=== PATIENT | female | born 1995 | race Caucasian/White ===

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

== ENCOUNTER 2017-03-31 11:57 | Emergency (ER) | payer BC | END 2017-03-31 16:07 | disposition left against medical advice (07) | LOC: UCCORT 11:57 | DX: R11.2 Nausea with vomiting, unspecified (principal); Z53.21 Procedure and treatment not carried out due to patient leaving prior to being seen by health care provider ==

== ENCOUNTER 2017-10-12 12:55 | Emergency (ER) | payer BC ==
[2017-10-12 13:13] VITALS: BP 127/59
--- NOTE | 2017-10-12 13:29 | UC ---
Hand/Wrist HPI - HPI Summary HPI Summary: Fell yesterday. C/O persistent left 4th finger swelling and pain up into the hand. - History Of Current Complaint Chief Complaint: UCUpperExtremity Stated Complaint: LEFT RING FINGER INJURY Time Seen by Provider: 10/12/17 13:15 Hx Obtained From: Patient Hx Last Menstrual Period: 10/05/17 ?: No Onset/Duration: Sudden Onset - fell last night, Still Present Severity Initially: Moderate Severity Currently: Moderate Pain Intensity: 5 Character Of Pain: Dull, Aching Aggravating Factor(s): Movement, Lifting, Flexion Alleviating Factor(s): Rest Associated Signs And Symptoms: Positive: Swelling, Bruising. Negative: Numbness /Tingling Related History: Dominant Hand Right - Allergies/Home Medications Allergies/Adverse Reactions: Allergies Allergy/AdvReac Type Severity Reaction Status Date / Time No Known Allergies Allergy Verified 10/12/17 13:09 PMH/Surg Hx/FS Hx/Imm Hx Previously Healthy: Yes Other History Of: Negative For: HIV, Hepatitis B, Hepatitis C - Surgical History Surgical History: Yes Surgery Procedure, Year, and Place: Right Proximal Humerus Fracture, 2012, [facility] - Family History Known Family History: Positive: Diabetes, Other - positive fmh uri Negative: Cardiac Disease, Hypertension - Social History Occupation: Student Lives: Dormitory/Roommates Alcohol Use: None Substance Use Type: None Smoking Status (MU): Never Smoked Tobacco - Immunization History Most Recent Influenza Vaccination: not this season Review of Systems Skin: Bruising Musculoskeletal: Arthralgia - left 4th MCP and proximal finger. Is Patient Immunocompromised?: No All Other Systems Reviewed And Are Negative: Yes Physical Exam Triage Information Reviewed: Yes Appearance: Well-Appearing, No Pain Distress, Well-Nourished Vital Signs: Initial Vital Signs Temp 98.7 F 10/12/17 13:07 Pulse 82 10/12/17 13:07 Resp 16 10/12/17 13:07 BP 127/59 10/12/17 13:07 Pulse Ox 100 10/12/17 13:07 Vital Signs Reviewed: Yes Eyes: Positive: Conjunctiva Clear Neck exam: Normal Respiratory Exam: Normal Cardiovascular Exam: Normal Musculoskeletal: Positive: ROM Limited @ - left 4th MCP and PIP, Other: - gamboa swelling and bruising over the 4th MCP. Neurological Exam: Normal Psychological Exam: Normal Skin Exam: Normal Procedures - Splinting Left 4th Digit Pre-Made Type: metal - aluminum finger splint Splint: volar - miquel wrapped with 5th finger with kacie wrap. Applied by Pre-Proc Neuro Vasc Exam: normal Post-Proc Neuro Vasc Exam: normal Diagnostics - Radiology No standard instances Xray Interpretation: No Acute Changes Radiology Interpretation Completed By: ED Physician Hand/Wrist Course/Dx - Differential Dx/Diagnosis Differential Diagnosis/HQI/PQRI: Abrasion, Fracture, Sprain, Strain Provider Diagnoses: Sprain left 4th MCP Discharge - Sign-Out/Discharge Documenting (check all that apply): Patient Departure All imaging exams completed and their final reports reviewed: No - Discharge Plan Condition: Stable Disposition: HOME Patient Education Materials: Finger Sprain (ED), Splint Care (ED) Referrals: No Primary Care Phys,NOPCP [Primary Care Provider] - Additional Instructions: Use the splint to protect it and help with pain. You can take it off to shower. Ice can be helpful for the first 48 hours. Take the splint off to apply ice. - Billing Disposition and Condition Condition: STABLE Disposition: Home
--- NOTE | 2017-10-12 14:03 | RAD ---
Indication: Trauma to the LEFT fourth finger. Swelling and bruising. Comparison: No relevant prior exams available on the [facility] PACS for comparison. Technique: 3 views LEFT fourth finger. REPORT AND IMPRESSION: #. Negative for fracture or malalignment. #. Fusiform soft tissue swelling centered at the proximal interphalangeal joint.
--- NOTE | 2017-10-12 19:03 | UC ---
- Progress Note Progress Note: Final report seen by Dr. Stearns Discharge - Sign-Out/Discharge Documenting (check all that apply): Post-Discharge Follow Up All imaging exams completed and their final reports reviewed: Yes - Discharge Plan Condition: Stable Disposition: HOME Patient Education Materials: Splint Care (ED), Finger Sprain (ED) Referrals: No Primary Care Phys,NOPCP [Primary Care Provider] - Additional Instructions: Use the splint to protect it and help with pain. You can take it off to shower. Ice can be helpful for the first 48 hours. Take the splint off to apply ice. - Billing Disposition and Condition Condition: STABLE Disposition: Home
== END 2017-10-12 13:51 | disposition home or self-care (01) ==
LOC: UCCORT 12:55
DX: S63.8X2A Sprain of other part of left wrist and hand, initial encounter (principal); W19.XXXA Unspecified fall, initial encounter; Y92.9 Unspecified place or not applicable
CPT/HCPCS: 73140; 99211; G0463

== ENCOUNTER 2018-03-29 19:05 | Emergency (ER) | payer BC ==
[2018-03-29 19:19] VITALS: BP 121/59
[2018-03-29] MEDS ORDERED: Cephalexin CAP* 500 MG PO ONE (19:42)
--- NOTE | 2018-03-29 19:44 | UC ---
UC General HPI - HPI Summary HPI Summary: PT STATES L EAR PIERCING IN CARTILAGE SINCE THIS SUMMER. IT BECAME INFECTED OVER THAT PAST 2 DAYS AND IS DRAINING PUSS. NO FEVER OR HX MRSA BUT THERE IS A SWOLLEN GLAND JUST BELOW THE EAR. - History of Current Complaint Chief Complaint: UCEar Stated Complaint: LEFT EAR COMPLAINT Time Seen by Provider: 03/29/18 19:20 Hx Obtained From: Patient Hx Last Menstrual Period: 02/21/18 Onset/Duration: Gradual Onset Timing: Constant Pain Intensity: 7 Associated Signs & Symptoms: Negative: Fever - Allergy/Home Medications Allergies/Adverse Reactions: Allergies Allergy/AdvReac Type Severity Reaction Status Date / Time No Known Allergies Allergy Verified 03/29/18 19:15 Home Medications: Home Medications Norgestimate-Ethinyl Estradiol [Tri-Sprintec Tablet] 1 tab DAILY 03/29/18 [ History Confirmed 03/29/18] PMH/Surg Hx/FS Hx/Imm Hx Previously Healthy: Yes Other History Of: Negative For: HIV, Hepatitis B, Hepatitis C - Surgical History Surgical History: Yes Surgery Procedure, Year, and Place: Right Proximal Humerus Fracture, 2012, [facility] - Family History Known Family History: Positive: Diabetes, Other - positive fmh uri Negative: Cardiac Disease, Hypertension - Social History Occupation: Student Alcohol Use: None Substance Use Type: None Smoking Status (MU): Never Smoked Tobacco - Immunization History Most Recent Influenza Vaccination: not this season Hx Tetanus, Diphtheria Vaccination: Yes Vaccination Up to Date: Yes Review of Systems All Other Systems Reviewed And Are Negative: Yes Constitutional: Positive: Negative Skin: Positive: Negative Eyes: Positive: Negative ENT: Positive: Negative Respiratory: Positive: Negative Cardiovascular: Positive: Negative Gastrointestinal: Positive: Negative Genitourinary: Positive: Negative Motor: Positive: Negative Neurovascular: Positive: Negative Musculoskeletal: Positive: Negative Neurological: Positive: Negative Psychological: Positive: Negative Physical Exam Triage Information Reviewed: Yes Appearance: Well-Appearing Vital Signs: Initial Vital Signs Temp 98.2 F 03/29/18 19:16 Pulse 87 03/29/18 19:16 Resp 16 03/29/18 19:16 BP 121/59 03/29/18 19:16 Pulse Ox 100 03/29/18 19:16 Vital Signs Reviewed: Yes Eyes: Positive: Conjunctiva Clear ENT: Positive: Pharynx normal, TMs normal, Other - L auricle/ear with piercings. The L middle ring has slight swelling to front of ear with scant puss draining and the backside has a 4mm pustule that is fluctuant. The adjacent ear is red and warm. The rest of the ear is unremarkable.The is adenopathy just inferior to that ear at angle of jaw.. Negative: Nasal congestion, Nasal drainage Neck: Positive: Supple, Nontender, No Lymphadenopathy Respiratory: Positive: Lungs clear Cardiovascular: Positive: RRR Abdomen Description: Positive: Nontender Bowel Sounds: Positive: Present Musculoskeletal: Positive: ROM Intact Neurological: Positive: Alert Psychological: Positive: Age Appropriate Behavior Skin Exam: Normal Course/Dx - Course Course Of Treatment: Pt gave permission to remove the piercing that is infected. Piercing unscrewed with ease and loop backed out. The pustule ruptured when I backed the loop out, draining a small amount of green puss. culture obtained. area cleaned with betadine then clensed. Bacitracin applied. Less swelling and erythema post tx. Only scant bleeding. Pt tolerated well. Piercing placed in a cup and given to pt for take home. will refer to ENT since abscess and secondary cellulitis of ear. 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 - Diagnoses Provider Diagnosis: Cellulitis of left ear, Abscess of external ear, left Discharge - Sign-Out/Discharge Documenting (check all that apply): Patient Departure All imaging exams completed and their final reports reviewed: No Studies - Discharge Plan Condition: Stable Disposition: HOME Prescriptions: Cephalexin CAP* [Keflex CAP*] 500 mg PO TID 10 Days #30 cap Patient Education Materials: Cellulitis (DC), Abscess (ED) Referrals: Matti Mills MD [Medical Doctor] - 2 Days - Billing Disposition and Condition Condition: STABLE Disposition: Home
== END 2018-03-29 20:06 | disposition home or self-care (01) ==
LOC: UCCORT 19:05
DX: H60.12 Cellulitis of left external ear (principal); H66.42 Suppurative otitis media, unspecified, left ear
CPT/HCPCS: 87070; 87205; 87640; 87641; 99212; A9270-GY; G0463

== ENCOUNTER 2018-06-12 07:11 | Emergency (ER) | payer BC ==
--- OUTSIDE RECORDS SUMMARY | 2018-06-12 07:20 | XMS REPORT | Continuity of Care Document ---
:1995 External Reference #:[id number] Author Name Jessica Sands NP Address [address] [place] [id number] Care Team Providers Name Role Phone Yes Primary Care Physician Unavailable Payers Date Identification Numbers Payment Provider Subscriber Effective: 2018 Policy Number: [employer] Medicaid Pe ([facility]) Carolee Trammell Expires: 2018 PayID: [id number] [address] [place], [place] [id number] Advance Directives Description No Information Available Problems Description No Information Family History Date Family Member(s) Observation Comments Father Alive Father No Current Problems Mother Alive Mother No Current Problems Social History Type Date Description Comments Sex Female Education Currently attending 3rd year of college Marital Status Legal Status: Never Tobacco Use Reviewed: 06/03/18 Never Smoked Cigars Tobacco Use Reviewed: 06/03/18 Never Smoked A Pipe Smoking Status Reviewed: 06/03/18 Never Smoked A Pipe Tobacco Use Reviewed: 06/03/18 Never Used Smokeless Tobacco ETOH Use Occasionally consumes alcohol Tobacco Use Reviewed: 06/03/18 Patient has never smoked Recreational Drug Use Denies Drug Use Recreational Drug Use Teaching provided regarding Naloxone/Narcan Training Available At [facility] Tattoo/Piercing Negative For Tattoo Condom Use Frequently UNKNOWN 06/03/2018 Never E-Cigarette user Allergies, Adverse Reactions, Alerts Description No Known Drug Allergies Medications Active Medications SIG Qnty Indications Ordering Provider Date Plan B One-Step take one tab 1tabs Z30.41 Jessica Sands NP 06/03/2018 1.5mg today Tablets Tri-Sprintec Unknown Medications Administered in Office Medication SIG Qnty Indications Ordering Provider Date Emergency Contraceptive Jessica Sands NP 06/03/2018 Injection Immunizations Description No Information Available Vital Signs Date Vital Result Comment 06/03/2018 9:26am BP Systolic 93 mmHg BP Diastolic 73 mmHg Height 64 inches 5'4" Weight 125.00 lb BMI (Body Mass Index) 21.5 kg/m2 Results Test Date Facility Test Result H/L Range Note Laboratory test finding 06/03/2018 [facility] HIV Rapid... non reactive Hep C Rapid Test non reactive Procedures Description No Information Available Encounters Type Date Location Provider Dx Diagnosis Office Visit 06/03/2018 [facility] Jessica Sands, ADOLPH Z11.4 Encounter for screening 9:00a for human immunodeficiency virus Z30.41 Encounter for surveillance of contraceptive pills Z11.3 Encntr screen for infections w sexl mode of transmiss Z11.59 Encounter for screening for other viral diseases Plan of Treatment 06/03/2018 - Jessica Sands NPZ11.4 Encounter for screening for human immunodeficiency virusComments:Advised patient to RTO for repeat testing in 3 months if she is concerned about anyone she has had sex with in the last 90 days.Z30.41 Encounter for surveillance of contraceptive pillsNew Medication: Plan B One-Step 1.5 mg - take one tab todayComments:Patient to continue on ocp . Reviewed use of, side effects and precautions with patient who states understanding. Patient is aware of ECP. She plans to f/u with home [employer] for annual and bcp refills. Shehas asked for a sample of Plan B for prn use. Gave one sample and reviewed use of, side effects and precautions of plan B use with patient who states understanding. Reviewed IUD options with patient. She states that she will call if she decides that she wants one.Z11.3 Encounter for screening for infections with a predominantlyNew Labs:Chlamydia/N Gonorroeae Rna Tma Urogenit, Ordered: 06/03/18Comments:Reviewed STD risks and prevention with patient. Patient states understanding.Z11.59 Encounter for screening for other viral diseases
[2018-06-12 07:25] VITALS: BP 96/72
--- NOTE | 2018-06-12 08:20 | UC ---
General HPI - HPI Summary HPI Summary: Woke with left eye glued shut, redness and itchy. Roommate just diagnosed with pink eye a few days ago and is better already. C/O sore throat this AM. No cough or congestion. No fever. No changes in vision. Meds; Reviewed. Otherwise acting ok - History of Current Complaint Chief Complaint: ABIDAEye Stated Complaint: LEFT EYE COMPLAINT Time Seen by Provider: 06/12/18 08:14 Hx Last Menstrual Period: 06/10/18 Pain Intensity: 0 - Allergy/Home Medications Allergies/Adverse Reactions: Allergies Allergy/AdvReac Type Severity Reaction Status Date / Time No Known Allergies Allergy Verified 03/29/18 19:15 PMH/Surg Hx/FS Hx/Imm Hx Previously Healthy: Yes Other History Of: Negative For: HIV, Hepatitis B, Hepatitis C - Surgical History Surgical History: Yes Surgery Procedure, Year, and Place: Right Proximal Humerus Fracture, 2012, [facility] - Family History Known Family History: Positive: Diabetes, Other - positive fmh uri Negative: Cardiac Disease, Hypertension - Social History Alcohol Use: None Substance Use Type: None Smoking Status (MU): Never Smoked Tobacco - Immunization History Most Recent Influenza Vaccination: not this season Hx Tetanus, Diphtheria Vaccination: Yes Vaccination Up to Date: Yes Review of Systems All Other Systems Reviewed And Are Negative: Yes Constitutional: Positive: Negative Eyes: Positive: Drainage, Eye Redness Physical Exam Triage Information Reviewed: Yes Appearance: Well-Appearing Vital Signs: Initial Vital Signs Temp 97.7 F 06/12/18 07:20 Pulse 75 06/12/18 07:20 Resp 16 06/12/18 07:20 BP 96/72 06/12/18 07:20 Pulse Ox 99 06/12/18 07:20 Eyes: Positive: Conjunctiva Inflamed, Other: - mainly on left, mild on right ENT: Positive: Pharyngeal erythema, TMs normal Neck exam: Normal Neck: Positive: Supple Respiratory: Positive: Lungs clear, Normal breath sounds Cardiovascular: Positive: RRR, No Murmur Skin Exam: Normal Course/Dx - Course Course Of Treatment: This is a 22 yr old with left eye redness and drainage Assessment Nontoxic appearing Plan Start antibiotic eye drop as prescribed If right eye starts to become red and itchy - start drops in that eye as well, same as directed Recommend good hand washing - Diagnoses Provider Diagnosis: Conjunctivitis Discharge - Sign-Out/Discharge Documenting (check all that apply): Patient Departure All imaging exams completed and their final reports reviewed: No Studies - Discharge Plan Condition: Good Disposition: HOME Prescriptions: Polymyx/Trimethoprim OPTH* [Polytrim OPHTH*] 3 drop LEFT EYE Q8H #1 btl Patient Education Materials: Conjunctivitis (ED) Referrals: No Primary Care Phys,NOPCP [Primary Care Provider] - Additional Instructions: Start antibiotic eye drop as prescribed If right eye starts to become red and itchy - start drops in that eye as well, same as directed Recommend good hand washing - Billing Disposition and Condition Condition: GOOD Disposition: Home
== END 2018-06-12 08:26 | disposition home or self-care (01) ==
LOC: UCCORT 07:11
DX: H10.9 Unspecified conjunctivitis (principal)
CPT/HCPCS: 99212; G0463